=== PATIENT | male | born 1955 | race Caucasian/White ===

== ENCOUNTER 2020-06-22 07:47 | Emergency (ER) | payer BC ==
--- NOTE | 2020-06-22 08:04 | EDM.PDOC ---
ED HPI GENERAL MEDICAL PROBLEM - General Chief Complaint: General Stated Complaint: NOSE BLEED Time Seen by Provider: 06/22/20 07:56 Source of Information: Reports: Patient History Limitations: Reports: No Limitations - History of Present Illness INITIAL COMMENTS - FREE TEXT/NARRATIVE: 64-year-old male presents to the ED with recurrent left-sided nosebleeds for the last 2 to 3 days. Current nosebleed started around 0400 hrs. this morning and has not stopped. He has shop towel material packing both sides of his nose. States blood was running down the back of his throat mildly. Does not feel nauseated at this time. He has had history of nosebleeds in the past with dry air exposure. No recent nasal trauma or surgery. He is on baby aspirin daily. Onset: Today, Sudden Onset Date: 06/22/20 Onset Time: 04:00 Duration: Hour(s):, Constant Location: Reports: Face (Left-sided nasal epistaxis.) Quality: Reports: Other Severity: Moderate (Left-sided nosebleed) Improves with: Reports: Other (Has improved with packing with sharp towel.) Worsens with: Reports: None Context: Reports: Other (Spontaneous onset of recurrent nosebleeds left side for the last 2 to 3 days). 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) - Related Data Allergies Allergy/AdvReac Type Severity Reaction Status Date / Time No Known Allergies Allergy Verified 06/22/20 07:55 Home Meds: Home Meds Aspirin 81 mg PO DAILY 06/22/20 [History] Bacitracin Zinc/Polymyxin B [Polysporin Ointment] 28.3 gm TP DAILY #1 tube 06/22/20 [Rx] Cholecalciferol (Vitamin D3) [D3-2000] 50 mg PO DAILY 06/22/20 [History] Empagliflozin [Jardiance] 25 mg PO DAILY 06/22/20 [History] Losartan [Cozaar] 25 mg PO DAILY 06/22/20 [History] Simvastatin 20 mg PO DAILY 06/22/20 [History] metFORMIN [Glucophage] 850 mg PO BID 06/22/20 [History] Past Medical History HEENT History: Reports: Epistaxis Social & Family History - Living Situation & Occupation Living situation: Reports: Occupation: Employed (Self-employed) ED ROS GENERAL - Review of Systems Review Of Systems: See Below Constitutional: Denies: Fever, Chills, Malaise, Weakness, Fatigue, Night Sweats HEENT: Reports: Nosebleed (Recurrent problems with nosebleed for last 2 to 3 days. Often occurring at nighttime.) Respiratory: Reports: No Symptoms Cardiovascular: Reports: No Symptoms Endocrine: Reports: No Symptoms GI/Abdominal: Reports: No Symptoms : Reports: No Symptoms Musculoskeletal: Reports: No Symptoms Skin: Reports: No Symptoms Neurological: Reports: No Symptoms Psychiatric: Reports: No Symptoms Hematologic/Lymphatic: Reports: No Symptoms Immunologic: Reports: No Symptoms ED EXAM, GENERAL - Physical Exam Exam: See Below Exam Limited By: No Limitations General Appearance: Alert, WD/WN, No Apparent Distress, Other (Temperature is 36.1 degrees. Heart rate 60 and sinus respiratory is 20 O2 sats recorded at 93- 96% room air.) Nose: Other (Packing removed from his nose reveals no active bleeding from the right side. Patient appears to have an anterior nosebleed from the left anterior nasal septum. It is not actively bleeding at present time.) Throat/Mouth: Normal Inspection, Other (There is blood in the posterior oropharynx bilaterally. No clots) Head: Atraumatic, Normocephalic Neck: Normal Inspection, Supple, Non-Tender, Full Range of Motion. No: Lymphadenopathy (L), Lymphadenopathy (R) Respiratory/Chest: No Respiratory Distress, Lungs Clear, Normal Breath Sounds, No Accessory Muscle Use Cardiovascular: Normal Peripheral Pulses, Regular Rate, Rhythm, No Edema, No Gallop, No Murmur, No Rub Course - Vital Signs Last Recorded V/S: Last Vital Signs Temp 36.1 C 06/22/20 07:54 Pulse 60 06/22/20 07:54 Resp 20 06/22/20 07:54 BP 157/78 H 06/22/20 07:54 Pulse Ox 93 L 06/22/20 07:54 - Radiology Interpretation Free Text/Narrative:: 64-year-old male presents to the ED with recurrent left-sided nosebleed which he has been experiencing for the last 2 to 3 days. No nasal trauma. No recent nasal surgery. He is on a baby aspirin daily. History of past nosebleeds but not for several years. States it often occurs due to exposure to dry air conditions. On examination he has a left anterior septal nasal bleeding source. Area was cauterized with silver nitrate which the patient tolerated well. I will review the patient in 10 to 15 minutes for further bleeding. Departure - Departure Time of Disposition: 08:24 Disposition: Home, Self-Care 01 Condition: Fair Clinical Impression: Epistaxis not due to trauma - Discharge Information *PRESCRIPTION DRUG MONITORING PROGRAM REVIEWED*: Not Applicable *COPY OF PRESCRIPTION DRUG MONITORING REPORT IN PATIENT SANTI: Not Applicable Prescriptions: Bacitracin Zinc/Polymyxin B [Polysporin Ointment] 28.3 gm TP DAILY #1 tube Referrals: Stone Villanueva MD [Primary Care Provider] - Forms: ED Department Discharge Additional Instructions: Evaluation in the emergency room today in regards to recurrent left-sided n osebleed for the last 2 to 3 days. No nasal trauma. Examination reveals that the mucosa or the lining of the nose on the septum in the middle of the nose anteriorly on the left side is irritated likely from dry air. Multiple areas of cauterization were performed with silver nitrate and no further bleeding was evident. Try not to blow your nose or manipulate your nose for the next 2 days. Nose will have the sniffles as we discussed for the next hour or hour and a half. Wipe gently with a Kleenex. Suggest use of Polysporin ointment applied into each side of your nose about a half an inch coating the septum on each side of your nose at bedtime with a Q-tip. This needs to be done for the next week and then if the weather remains very dry I would suggest using it on Thursday night and Thursday night each week until humidity levels returned to normal. Of course return to the ED if any further nosebleed occurs. Sepsis Event Note (ED) - Evaluation Sepsis Screening Result: No Definite Risk - Focused Exam Vital Signs: Vital Signs Temp Pulse Resp BP Pulse Ox 06/22/20 07:54 36.1 C 60 20 157/78 H 93 L
== END 2020-06-22 09:04 | disposition home or self-care (01) ==
LOC: JD.ED 07:47
DX: R04.0 Epistaxis (principal); Z79.82 Long term (current) use of aspirin; Z79.899 Other long term (current) drug therapy
CPT/HCPCS: 30901; 99282; 99283-25

== ENCOUNTER 2022-08-20 07:00 | Emergency (ER) | payer BC, MEDICARE ==
[2022-08-20] MEDS ORDERED: Lactated Ringers 1,000 ML IV ONE (07:41)
[2022-08-20 08:00] LABS: BASOPHILS ABSOLUTE AUTO 0.01 K/mm3 (0.01-0.08); BASOPHILS PERCENT AUTO 0.1 % (0.1-1.2); EOSINOPHILS ABSOLUTE AUTO 0.02 K/mm3 (0.04-0.54); EOSINOPHILS PERCENT AUTO 0.2 (0.8-7.0); HEMATOCRIT 39.6 % (40.1-51.0); HEMOGLOBIN 13.2 gm/dl (13.7-17.5); IMMATURE GRAN ABSOLUTE AUTO 0.01 K/mm3 (0.00-0.10); IMMATURE GRAN PERCENT AUTO 0.1 % (<=1.0); LYMPHOCYTES ABSOLUTE AUTO 0.69 K/mm3 (1.32-3.57); LYMPHOCYTES PERCENT AUTO 7.2 % (21.8-53.1); MEAN CORPUSCULAR HEMOGLOBIN 30.2 pg (25.7-32.2); MEAN CORPUSCULAR HGB CONC 33.3 g/dl (32.2-35.5); MEAN CORPUSCULAR VOLUME 90.6 fl (79.0-92.2); MEAN PLATELET VOLUME 11.7 fl (9.4-12.3); MONOCYTES PERCENT AUTO 8.4 % (5.3-12.2); NEUTROPHILS ABSOLUTE AUTO 8.03 K/mm3 (1.78-5.38); PLATELET COUNT,PLT 213 K/mm3 (163-337); RED BLOOD CELL COUNT 4.37 M/mm3 (4.63-6.08); WHITE BLOOD CELL COUNT,WBC 9.56 K/mm3 (4.23-9.07)
[2022-08-20] MEDS ORDERED: Iopamidol 612 MG/ML 100 ML Bottle IVPUSH ONE (08:00)
[2022-08-20 08:03] LABS: BILIRUBIN,URINE 3+ (Negative); COLOR,URINE RED (Yellow); GLUCOSE,URINE 3+ (Negative); KETONES,URINE 2+ (Negative); LEUKOCYTE ESTERASE,URINE 3+ (Negative); NITRITE,URINE NEGATIVE (Negative); OCCULT BLOOD,URINE 3+ (Negative); PROTEIN,URINE 3+ (Negative)
[2022-08-20 08:05] LABS: APPEARANCE,URINE TURBID (Clear)
[2022-08-20 08:23] LABS: BACTERIA,URINE MODERATE /hpf (FEW); EPITHELIAL CELLS,URINE NOT SEEN /hpf (0-5); MUCUS,URINE NOT SEEN /hpf (FEW); RBC,URINE TOO NUMEROUS TO CNT /hpf (0-5)
[2022-08-20] MEDS: Sodium Chloride 0.9% 10 ML Syringe FLUSH PRN ×2 (08:24→08:43)
[2022-08-20 08:38] LABS: A/G RATIO 1.2 (1-2); ALBUMIN 4.3 g/dl (3.4-5.0); BILIRUBIN TOTAL 0.3 mg/dL (0.2-1.0); CREATININE 1.2 mg/dL (0.7-1.3); EST CRCL DRUG DOSING (CG) 69.45 mL/min; PROTEIN TOTAL,TP 7.8 g/dl (6.4-8.2)
[2022-08-20] MEDS ORDERED: cefTRIAXone 2 GM in Sodium Chloride 0.9% 100 ML IV ONE (09:20)
[2022-08-20 09:35] LABS: LACTIC ACID 0.9 mmol/L (0.4-2.0)
[2022-08-20] MEDS ORDERED: Lactated Ringers 1,000 ML IV SCH (10:30)
== END 2022-08-20 12:37 ==
LOC: JD.ED 07:00
DX: N39.0 Urinary tract infection, site not specified (principal); N13.2 Hydronephrosis with renal and ureteral calculous obstruction; N32.89 Other specified disorders of bladder; E78.00 Pure hypercholesterolemia, unspecified; I10 Essential (primary) hypertension; E11.9 Type 2 diabetes mellitus without complications; Z79.82 Long term (current) use of aspirin; Z79.899 Other long term (current) drug therapy
CPT/HCPCS: 36415; 51701; 51798; 74177; 80053; 81001; 83605; 85025; 87086; 96361; 96365; 99285; J0696; J3490; J7120; Q9967; 99284

== ENCOUNTER 2022-08-25 16:08 | Emergency (ER) | payer MEDICARE, BC | END 2022-08-25 18:07 | disposition home or self-care (01) | LOC: JD.ED 16:08 | DX: R33.9 Retention of urine, unspecified (principal); E78.00 Pure hypercholesterolemia, unspecified; I10 Essential (primary) hypertension; E11.9 Type 2 diabetes mellitus without complications; F17.210 Nicotine dependence, cigarettes, uncomplicated; Z79.82 Long term (current) use of aspirin; Z79.899 Other long term (current) drug therapy | CPT/HCPCS: 99283 ==

== ENCOUNTER 2022-08-31 15:24 | Emergency (ER) | payer MEDICARE, BC ==
[2022-08-31] MEDS ORDERED: Sodium Chloride 0.9% 10 ML Syringe FLUSH PRN (15:50)
[2022-08-31 16:06] LABS: BASOPHILS ABSOLUTE AUTO 0.01 K/mm3 (0.01-0.08); BASOPHILS PERCENT AUTO 0.1 % (0.1-1.2); EOSINOPHILS ABSOLUTE AUTO 0.03 K/mm3 (0.04-0.54); EOSINOPHILS PERCENT AUTO 0.4 (0.8-7.0); HEMATOCRIT 34.4 % (40.1-51.0); HEMOGLOBIN 11.1 gm/dl (13.7-17.5); IMMATURE GRAN ABSOLUTE AUTO 0.02 K/mm3 (0.00-0.10); IMMATURE GRAN PERCENT AUTO 0.3 % (<=1.0); LYMPHOCYTES ABSOLUTE AUTO 0.36 K/mm3 (1.32-3.57); LYMPHOCYTES PERCENT AUTO 4.7 % (21.8-53.1); MEAN CORPUSCULAR HEMOGLOBIN 30.5 pg (25.7-32.2); MEAN CORPUSCULAR HGB CONC 32.3 g/dl (32.2-35.5); MEAN CORPUSCULAR VOLUME 94.5 fl (79.0-92.2); MEAN PLATELET VOLUME 9.8 fl (9.4-12.3); MONOCYTES ABSOLUTE AUTO 0.81 K/mm3 (0.30-0.82); MONOCYTES PERCENT AUTO 10.7 % (5.3-12.2); NEUTROPHILS ABSOLUTE AUTO 6.35 K/mm3 (1.78-5.38); NEUTROPHILS PERCENT AUTO 83.8 % (34.0-67.9); PLATELET COUNT,PLT 178 K/mm3 (163-337); RED BLOOD CELL COUNT 3.64 M/mm3 (4.63-6.08); WHITE BLOOD CELL COUNT,WBC 7.58 K/mm3 (4.23-9.07)
[2022-08-31 16:07] LABS: APPEARANCE,URINE SLT CLOUDY (Clear); BILIRUBIN,URINE NEGATIVE (Negative); COLOR,URINE YELLOW (Yellow); GLUCOSE,URINE 2+ (Negative); KETONES,URINE 1+ (Negative); LEUKOCYTE ESTERASE,URINE TRACE (Negative); NITRITE,URINE POSITIVE (Negative); OCCULT BLOOD,URINE 3+ (Negative); PH,URINE 5.5 (5.0-8.0); PROTEIN,URINE 3+ (Negative); UROBILINOGEN,URINE 0.2 (0.2-1.0)
[2022-08-31 16:17] LABS: BACTERIA,URINE MANY /hpf (FEW); MUCUS,URINE NOT SEEN /hpf (FEW); RBC,URINE TOO NUMEROUS TO CNT /hpf (0-5); SQUAMOUS EPITHELIAL CELLS,UR 0-5 /hpf (0-5)
[2022-08-31 16:30] LABS: A/G RATIO 0.8 (1-2); ALBUMIN 3.3 g/dl (3.4-5.0); ANION GAP 14.4 (5-15); BILIRUBIN TOTAL 0.6 mg/dL (0.2-1.0); BUN/CREATININE RATIO 14.2 (14-18); CALCIUM 8.8 mg/dL (8.5-10.1); CREATININE 1.2 mg/dL (0.7-1.3); EST CRCL DRUG DOSING (CG) 69.45 mL/min; POTASSIUM,K 4.4 mEq/L (3.5-5.1); PROTEIN TOTAL,TP 7.3 g/dl (6.4-8.2)
[2022-08-31] MEDS ORDERED: Levofloxacin/Dextrose 5%-Water 750 MG in Premix Bag 1 BAG IV ONE (16:59)
== END 2022-08-31 19:35 | disposition home or self-care (01) ==
LOC: JD.ED 15:24
DX: N39.0 Urinary tract infection, site not specified (principal); E78.00 Pure hypercholesterolemia, unspecified; I10 Essential (primary) hypertension; E11.9 Type 2 diabetes mellitus without complications; Z79.82 Long term (current) use of aspirin; Z79.899 Other long term (current) drug therapy
CPT/HCPCS: 36415; 80053; 81001; 85025; 96365; 99283; J1956; J3490